=== PATIENT | male | born 1955 | race Caucasian/White ===

== ENCOUNTER 2017-11-26 13:34 | Emergency (ER) | payer BC ==
[~2017-11-26] VITALS: Ht 190.5 cm; Wt 117.9 kg
[2017-11-26] MEDS ORDERED: ACETAMINOPHEN 325 MG TAB PO ONE (14:45)
[2017-11-26] MEDS ORDERED: KETOROLAC TROMETHAMINE 60 MG/2 ML VIAL IM ONE (14:45)
== END 2017-11-26 17:49 | disposition home or self-care (01) ==
LOC: FSED 13:34
DX: M25.512 Pain in left shoulder (principal); S43.422A Sprain of left rotator cuff capsule, initial encounter; Y93.53 Activity, golf; Y92.39 Other specified sports and athletic area as the place of occurrence of the external cause; I48.91 Unspecified atrial fibrillation
CPT/HCPCS: 73030; 93005; 99283; J1885